=== PATIENT | male | born 2005 ===

== ENCOUNTER 2025-10-03 13:07 | Outpatient (AMB) | payer OTHER, SELFPAY ==
--- NOTE | 2025-10-03 13:10 | A.OFFPC_ITS ---
Vital Signs 10/03/25 13:17 Height 5 ft 3.75 in Weight 109 lb BMI 18.9 BP 124/69 Blood Pressure Location Rt brachial Position Sitting Respiration 20 Pulse 83 Pulse Source Monitor Temp 98.1 F Temp Source Oral Pulse Oximetry (%) 97 Oxygen Delivery Method Room Air Intake Visit Reasons: TREE WORKER-Stomach issues Intake Note: Stomach issues, before starting an activity or when he is anxious has stomach pain on the right side of the stomach Milling Machine Operator Required: No Accompanied by: Self / Same As Patient Allergies No Known Allergies Allergy (Verified 10/03/25 13:14) Medication List - Last Reconciled 10/03/25 by Tung Cullen MD omeprazole 20 mg PO DAILY Tobacco use date assessed: 10/03/25 Dental Screening Dental Screen Date: 10/03/25 Did you have a dental visit in the last 12 months?: Yes Did you have a dental problem in the last 6 months where you did not have access to dental care?: No Was dental information given to patient?: Patient has dentist HPI HPI Comments History of Present Illness Details History of Present Illness The patient is a 20-year-old individual presenting for evaluation of stomach pain and anxiety. Epigastric Pain: The patient reports experiencing stomach pain daily for the last couple of months, occurring in the mornings or mid-afternoon. The patient believes the pain is associated with anxiety. The patient also reports sometimes experiencing painful bowel movements and acknowledges a diet high in junk food, which may contribute to constipation. Anxiety: The patient reports experiencing high anxiety a couple of times a week, which started a couple of months ago. History of Palpitations: The patient has a history of palpitations and was previously prescribed metoprolol, which the patient has not taken for approximately seven to eight months. The patient was evaluated by a development coach for this condition in the past. Cannabis Use: The patient reports smoking one or two blunts or joints daily and has been doing so for the past two to three years. The patient denies any other illicit drug use. Surgical History: - No history of surgeries. Medications: - Metoprolol: Previously taken for palpi tations, but discontinued 7-8 months ago. 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 - Substance Use: The patient smokes one or two cannabis blunts or joints daily and has done so for two to three years. - The patient denies use of other drugs. - Diet: The patient reports consuming a lot of junk food and is trying to reduce intake. - Exercise: The patient goes to the gym and plays ball with friends for recreation. - Residence: The patient has lived in [facility] their entire life. Family History: - The patient denies any known family me dical history. Past Medical History - History of palpitations, for which the patient was evaluated by a development coach. - Previously treated with metoprolol but discontinued use 7-8 months ago. Health Maintenance - A baseline health screening was magdalena flores. - Laboratory tests ordered include: a co mplete blood count, comprehensive metabolic panel, hemoglobin A1c, lipid panel, thyroid panel, B12, folate, vitamin D, HIV, hepatitis B, and hepatitis C. - The patient declined screening for chl amydia, gonorrhea, and syphilis. - Dietary counseling was provided, recom mending a high-fiber and high-greens diet to address painful bowel movements and constipation. [facility] Medical History (Updated 10/03/25 @ 14:33 by Tung Cullen MD) Cannabis use disorder Palpitations Family History (Updated 10/03/25 @ 13:16 by Rodrigo Cooper CMA) Paternal Uncle Diabetes Social History (Updated 10/03/25 @ 13:16 by Rodrigo Cooper CMA) Housing: House Alcohol intake: never Patient Tobacco Use Status: Never used Tobacco e-Cigarette/Vaping Use: Never Used Substance Use Type: Marijuana service: No Current occupational status: employed Current occupation: [employer] Cognitive needs: No Hearing needs: No Vision needs: No Questionnaire PHQ-9 Over the last 2 weeks, how often have you been bothered by any of the following problems? 1. Little interest or pleasure in doing things: more than half the days 2. Feeling down, depressed, or hopeless: not at all 3. Trouble falling or staying asleep, or sleeping too much: not at all 4. Feeling tired or having little energy: several days 5. Poor appetite or overeating: not at all 6. Feeling bad about yourself - or that you are a failure or have let yourself or your family down: not at all 7. Trouble concentrating on things, such as reading the newspaper or watching television: not at all 8. Moving or speaking so slowly that other people could have noticed. Or the opposite - being so fidgety or restless that you have been moving around a lot more than usual: not at all 9. Thoughts that you would be better off or of hurting yourself in some way: not at all Total score: 3 Depression Screening Interpretation: Negative Depression Screening Done: Yes 83655 - PHQ-9 Billing: Yes Source: Developed by Drs. Hilario Goodwin, Tayla Ramirez, Timothy Che and colleagues, with an educational verenice from [employer]. Thrive Questionnaire Date Thrive assessed: 10/03/25 I am a: Patient What is your living situation today?: I have a steady place to live Within the past 12 months, did the food you bought not last and you didn't have the money to get more?: Never true Within the past 12 months, did you worry whether your food would run out before you got money to buy more?: Never true Do you have trouble paying for medicines?: No Do you have trouble getting transportation to medical appointments?: No Do you have trouble paying your heating and electricity bill?: No Do you have trouble taking care of your child, family member or friend?: No Are you currently unemployed and looking for a job?: No Are you interested in more education?: Yes Please select the resources that you would like help with: None Currently or been in a relationship where the following occur: No concerns reported THRIVE Score: 0 AUDIT C Alcohol Use Questionnaire (AUDIT-C) 1. How often do you have a drink containing alcohol?: Never Total Score: 0 GUERLINE-7 AMB Questionnaire GUERLINE-7 Date GUERLINE - 7 assessed: 10/03/25 Feeling nervous, anxious, or on edge: 1 = Several days Not being able to stop or control worryin = Not at all Worrying too much about different things: 1 = Several days Trouble relaxin = Not at all Being so restless that it is hard to sit still: 0 = Not at all Becoming easily annoyed or irritable: 0 = Not at all Feeling afraid as if something awful might happen: 0 = Not at all Total GUERLINE-7 score (0-4 normal; 5-9 mild; 10-14 moderate; 15-21 severe): 2 Source: Developed by Drs. Hilario Goodwin, Tayla Ramirez, Timothy Che and colleagues, with an educational verenice from [employer]. GUERLINE-7 Assessment Billing GUERLINE-7 Assessment Tool: GUERLINE-7 Assessment 37314 Review of Systems Narrative Review of Systems - Constitutional: Reports sleeping okay. - Cardiovascular: Reports a history of palpitations that are less severe than before. - Gastrointestinal: Reports daily stomach pain in the mornings or mid-afternoon. - Also reports that bowel movements are sometimes painful. - Psychiatric: Reports experiencing high anxiety a couple of times per week. - All other systems reviewed and are negative. 10-point ROS reviewed and negative except as noted in HPI Physical exam (Primary Care) Vital Signs: Last Vital Signs Temp 98.1 F 10/03/25 13:17 Pulse 83 10/03/25 13:17 Resp 20 10/03/25 13:17 BP 124/69 10/03/25 13:17 Pulse Ox 97 10/03/25 13:17 Oxygen Delivery Method Room Air 10/03/25 13:17 BMI result Body Mass Index 18.9 Tobacco/Smoking Status: Tobacco use Status Tobacco use date assessed 10/03/25 10/03/25 13:19 Patient Tobacco Use Status Never used Tobacco 10/03/25 13:19 e-Cigarette/Vaping Use Never Used 10/03/25 13:19 PHQ-9: PHQ-9 Score PHQ-9: Total score 3 10/03/25 13:13 Depression Screening Interpretation: Negative Thrive Assessment: Date of Thrive Assessment Date Thrive assessed 10/03/25 10/03/25 13:13 Currently or been in a relationship where the following occur: No concerns reported Narrative Physical Exam General: Well-appearing, in no acute distress. Vital signs: Within normal limits. HEENT: Normocephalic, atraumatic. PERRLA, EOMI. Conjunctiva clear, sclera anicteric. Oropharynx clear, mucous membranes moist. TMs intact bilaterally. Neck: Supple, no lymphadenopathy, no thyromegaly, no JVD or carotid bruits. Cardiovascular: RRR, normal S1/S2, no murmurs, rubs, or gallops. Peripheral pulses 2+ and symmetric. No edema. Respiratory: Lungs clear to auscultation bilaterally, no wheezes, rales, or rhonchi. Normal effort. Abdomen: Soft, non-tender, non-distended. Normoactive bowel sounds. No hepatosplenomegaly, no masses. MSK: Full range of motion, no joint swelling or deformity. Normal gait. Skin: Warm, dry, intact. No rashes, lesions, or pallor. Neuro: Alert and oriented x3. Cranial nerves II-XII intact. Strength 5/5 throughout. Sensation intact. Reflexes 2+ symmetric. Normal coordination and gait. Psych: Appropriate mood and affect. Normal judgment and insight. Reports high anxiety a couple of times a week. Coding Level of Care Code New Pt Level 4 (59297) Diagnoses Palpitations R00.2 Cannabis use disorder F12.90 Epigastric pain R10.13 Adjustment disorder with anxiety F43.22 Additional Codes GUERLINE-7 Assessment Billing - GUERLINE-7 Assessment Tool: GUERLINE-7 Assessment 18869 ([id number]) PHQ-9 - 57872 - PHQ-9 Billing: Yes ([id number]) Assessment & Plan Assessment & Plan (1) Palpitations: Code(s): R00.2 - Palpitations Category: Medical (2) Cannabis use disorder: Code(s): F12.90 - Cannabis use, unspecified, uncomplicated Category: Medical (3) Epigastric pain: Code(s): R10.13 - Epigastric pain (4) Adjustment disorder with anxiety: Code(s): F43.22 - Adjustment disorder with anxiety Plan Consent The patient provided verbal consent for baseline laboratory studies, including a complete blood count, comprehensive metabolic panel, hemoglobin A1c, lipid panel, thyroid studies, vitamin B12, folate, vitamin D, HIV, hepatitis B, and hepatitis C. The patient declined testing for chlamydia, gonorrhea, and syphilis, stating that the patient is not sexually active. Patient was informed and verbally consented to the use of an ambient scribe for clinic note documentation during this visit. Plan 1. Epigastric Pain And Constipation - An empiric trial of an acid agile developer was initiated. - Prescribed omeprazole 20 mg to be taken once daily in the morning before food. - A 30-day supply was sent to the patient's pharmacy. - Counseled the patient to increase fiber and greens in diet to address constipation, likely caused by a diet high in junk food. 2. Anxiety And Health Maintenance - To establish a comprehensive health baseline, a panel of labs was ordered, including CBC, CMP, HbA1c, lipids, thyroid function, B12, folate, vitamin D, HI V, and hepatitis screening. - The patient will follow up in two weeks to review the laboratory results and reassess symptoms. - Further management will be determined based on the lab findings and response to the initial treatment. Discussion Notes I discussed with the patient the plan to obtain a comprehensive set of baseline labs to get a clear picture of overall health. The patient agreed to proceed with the recommended blood work but declined screening for sexually transmitted infections, stating that the patient is not currently sexually active. For the daily stomach pains, I explained that we would start an acid-reducing medication, omeprazole 20 mg daily for one month, to see if it helps. I also advised that the painful bowel movements may be related to a diet high in junk food, and that increasing fiber and greens could alleviate this. We scheduled a follow-up appointment in two weeks to review all the results and decide on the next steps. Patient Instructions - Go to the laboratory to have your blood drawn for the tests we discussed. - Take one capsule of omeprazole 20 mg each morning before you eat. - A one-month supply has been sent to the [facility]. - Try to eat more foods with fiber, like fruits and vegetables, and reduce your intake of junk food to help with painful bowel movements. - Please schedule a follow-up appointment in two weeks to go over your test results. Medical Decision Making The patient is a 20-year-old individual presenting with daily epigastric pain and anxiety. The primary goal is to establish a health baseline and investigate the etiology of the symptoms. The epigastric pain is suspected to be related to acid-peptic disease, possibly exacerbated by anxiety and diet, prompting an empiric trial of omeprazole 20 mg daily. A comprehensive lab panel was ordered to screen for underlying organic causes for the patient's symptoms and to establish a baseline health profile. The patient's history of palpitations is noted but reported as improved. Dietary counseling was provided for constipation, which is likely secondary to a low- fiber diet. Close follow-up in two weeks will be crucial to review lab results and the response to the proton pump inhibitor, which will guide further diagnostic and therapeutic steps. Total Time Statement 30 min Total time spent caring for the patient today includes pre-visit chart review, d ocumentation, review of laboratory and diagnostic imaging results, medication reconciliation, medically necessary evaluation, counseling on diagnoses, care coordination, ordering appropriate tests and medications, review of tests performed by other providers, reporting test results to the patient, and communication with other healthcare providers. Orders: Orders Complete Blood Count Auto Diff Today Z13.9 - Encounter for screening, unspecified Syphilis Screen Today Z13.9 - Encounter for screening, unspecified Comprehensive Met. Panel Today Z13.9 - Encounter for screening, unspecified Hepatitis C Antibody Today Z13.9 - Encounter for screening, unspecified TSH reflex Free T4 Today Z13.9 - Encounter for screening, unspecified HIV Ab/Ag Today Z13.9 - Encounter for screening, unspecified Vitamin B12 and Folate Today Z13.9 - Encounter for screening, unspecified Hepatitis B Surface Antibody Today Z13.9 - Encounter for screening, unspecified Hepatitis B Surface Antigen Today Z13.9 - Encounter for screening, unspecified CT NG by PCR Urine Today Z13.9 - Encounter for screening, unspecified UA CC w/rflx Micro + Cult Today Z13.9 - Encounter for screening, unspecified Lipid Panel Today Z13.9 - Encounter for screening, unspecified Hemoglobin A1c Today Z13.9 - Encounter for screening, unspecified Magnesium Today Z13.9 - Encounter for screening, unspecified Vitamin D 1,25 dihydroxy Today Z13.9 - Encounter for screening, unspecified Medications: New omeprazole 20 mg PO DAILY 30 caps 0RF
[2025-10-03 13:17] VITALS: BP 124/69; PULSE 83; RESP 20; TEMP 36.7; O2SAT 97; BMI 18.9
--- OUTSIDE RECORDS SUMMARY | 2025-10-03 17:44 | XMS_ITS | Encounter Summary ---
Author Organization [facility] Address [address] [place] [id number] Phone Care Team Providers Care Educational Institution Curator Name Role Phone Gabriel Barnes MD Primary Care Provider Arlin Lake MD Unavailable [email or web address] Encounter Details Date Type Department Care Team (Late st Contact Info) Description 01/28/2024 Procedure Pass [facility] Pedi Cardiology at [address] [address] Social History Tobacco Use Types Packs/Day Years Used Date Smoking Tobacco: Never Assessed Education Answer Date Recorded Are you interested in more education? Not on marcos e 06/06/2023 Are you concerned about learning? Not on file 06/06/2023 No 06/06/2023 No 06/06/2023 Digital Access Answer Date Recorded No 06/06/2023 No 06/06/2023 Reliable internet access at home? Not on file 06/06/2023 Device with a working camera? Not on file Sex and Gender Information Value Date Recorded Sex Assigned at Not on file Legal Sex Male 6:47 PM EDT Gender Identity Not on file Sexual Orientation Not on file documented as of this encounter Plan of Treatment Not on file documented as of this encounter Visit Diagnoses Not on filedocumented in this encounter Care Teams Educational Institution Curator Relationship Specialty Start Date End Date Gabriel Barnes MD PCP - General Internal Medicine 06/06/23 Arlin Lake MD [email or web address] Pediatric Cardiology 10/30/23 documented as of this encounter Additional Source Comments The information contained in this document represents components of the legal health record. It is not the complete legal health record.[facility]
--- OUTSIDE RECORDS SUMMARY | 2025-10-03 17:44 | XMS_ITS | Clinical Summary ---
Author Organization [facility] Address [address] [place] [id number] Phone Care Team Providers Care Fisher Eel Name Role Phone Gabriel Barnes MD Primary Care Provider Arlin Lake MD Unavailable [email or web address] Allergies No known active allergies Medications No known medications Active Problems Problem Noted Date Diagnosed Date PVC (premature ventricular contraction) 09/26/20 Overview (11/26/2023): 07/2022- seen by Dr. Robertson for frequent PVC noted on 04/2021 on atenolol 25mg daily with breakthrough palpitations. Normal echo, normal thyroid, and iron levels. He was switched to betaxolol no longer having breakthrough PVCs. F/u 6 months. BMI (body mass index), pedia tric, less than 5th percentile for age 0201/03/2022 Environmental allergies 03/14/2015 Overview (11/26/2023): 03/21/16 Tobacco Packer: testing POS for dust mites, trees, grass, weed and cats Social History Tobacco Use Types Packs/Day Years [...] on file Sexual Orientation Not on file Last Filed Vital Signs Vital Sign Reading Time Taken Comments Blood Pressure 122/73 01/28/2024 10:41 AM EDT Pulse 64 01/28/2024 10:41 AM EDT Temperature - - Respiratory Rate - - Oxygen Saturation 98% 01/28/2024 10:41 AM EDT Inhaled Oxygen Concentration - - Weight 46 kg (101 lb 6.4 oz) 01/28/2024 10:41 AM EDT Height 163 cm (5' 4.17 ) 01/28/2024 10:41 AM EDT Body Mass Index 17.31 01/28/2024 10:41 AM EDT Plan of Treatment Health Maintenance Due Date Last Done Comments MMR VACCINES (1 of 1 - Standard series) 2005 DEVELOPMENTAL/BEHAVIORAL SCREENING (PHQ, PSC, or SWYC) 2007 DEPRESSION SCREENING 2016 SMOKING Hx and SMOKELESS TOBACCO SCREENING 2017 HPV VACCINES (1 - Male 3-dose series) 2019 MENINGOCOCCAL VACCINES (B) (1 of 2 - Standard) 2020 ADOLESCENT UNIVERSAL LIPID SCREENING 2021 HEPATITIS C SCREENING 2022 HIV ONE-TIME SCREENING (18-65 YEARS) 2022 INFLUENZA VACCINE (#1) 2025 COVID-19 VACCINE (1 - season) 2025 COMBINED DTaP,Tdap,Td (7 - Td or Tdap) 01/03/2032 01/03/2022, 11/16/2008, 10/06/2006, Additional history exists VARICELLA VACCINES Completed 12/16/2011, 10/02/2005 HEPATITIS A VACCINES Aged Out No long er eligible based on patient's age to complete this topic HIB VACCINES Aged Out No longer eligi ble based on patient's age to complete this topic MENINGOCOCCAL VACCINES (ACWY) Aged Out No longer eligible based on patient's age to complete this topic PNEUMOCOCCAL VACCINES (0-49 years) Aged Out No longer eligible based on patient's age to complete this topic Medical Devices Not on file Care Teams Fisher Eel Relationship Specialty Start Date End Date Gabriel Barnes MD PCP - General Internal Medicine 06/06/23 Arlin Lake MD [email or web address] Pediatric Cardiology 10/30/23 Additional Source Comments The information contained in this document represents components of the legal health record. It is not the complete legal health record.[facility]
--- OUTSIDE RECORDS SUMMARY | 2025-10-03 17:44 | XMS_ITS ---
Author Name [facility] Organization Unknown Care Team Organization Name Specialty Phone Email Start Date End Da te [facility] Primary Care 09/09/202306/10 [facility] Primary Care 07/17/202306/10 [facility] Primary Care 11/18/20222023 [facility] Primary Care 09/17/20222023
--- OUTSIDE RECORDS SUMMARY | 2025-10-03 17:44 | XMS_ITS | Encounter Summary ---
Author Organization [facility] Address [address] [facility] [address] [place] [id number] Phone Care Team Providers Care Advertising Solicitor Name Role Phone Gabriel Barnes MD Primary Care Provider Arlin Lake MD Unavailable [email or web address] Encounter Details Date Type Department Care Team (Late st Contact Info) Description 08/21/2023 Procedure Pass [facility] Pedi Cardiology at [address] [address] Social History Tobacco Use Types Packs/Day Years [...] on filedocumented in this encounter Care Teams Advertising Solicitor Relationship Specialty Start Date End Date Gabriel Barnes MD PCP - General Internal Medicine 06/06/23 Arlin Lake MD [email or web address] Pediatric Cardiology 10/30/23 documented as of this encounter Additional Source Comments The information contained in this document represents components of the legal health record. It is not the complete legal health record.[facility]
== END 2025-10-03 13:59 | disposition home or self-care (01) ==
PROVIDERS: PCP Student in an Organized Health Care Education/Training Program; Visit Provider Student in an Organized Health Care Education/Training Program
DX: R00.2 Palpitations (principal); F12.90 Cannabis use, unspecified, uncomplicated; R10.13 Epigastric pain; F43.22 Adjustment disorder with anxiety

== ENCOUNTER 2025-10-03 13:07 | Outpatient (REF) | payer OTHER, SELFPAY ==
[2025-10-03 18:19] LABS: MANUAL DIFF FLAG NO
[2025-10-03 18:38] LABS: Hematocrit 46.5 % (42.0-52.0); Hemoglobin 15.1 g/dl (14.0-18.0); Imm Gran Abs Auto 0.02 X10*3/uL (0.00-0.03); Imm Gran Pct Auto 0.2 % (0.0-0.4); Lymphocytes Absolute Auto 1.6 X10*3/uL (1.2-4.9); Mean Corpuscular HGB Conc 32.5 g/dl (31.0-36.0); Mean Corpuscular Hemoglobin 28.4 pg (27.0-33.0); Mean Corpuscular Volume 87.6 fL (80.0-98.0); NRBC Abs Auto 0.000 X10*3/uL (0.0-0.012); NRBC Pct Auto 0.0 /100WBC (0.0-0.2); Platelet Count 363 X10*3/uL (160-400); Red Blood Count 5.31 X10*6/uL (4.60-5.80); White Blood Count 9.1 X10*3/uL (4.8-10.8)
[2025-10-03 18:47] LABS: Appearance Urine Clear; Glucose Urine UA Negative (Negative); PH 6.0 (5.0-9.0); Specific Gravity - Urine 1.020 (1.005-1.025)
[2025-10-03 19:08] LABS: Alanine Aminotransferase 24 U/L (0-40); Albumin Level 5.2 g/dL (3.5-5.0); Alkaline Phosphatase 80 U/L (39-117); Anion Gap 14 (12-20); Aspartate Amino Transferase 29 U/L (5-37); Blood Urea Nitrogen 14 mg/dL (9-16); Calcium 9.6 mg/dL (8.4-10.2); Carbon Dioxide 27 mmol/L (22-29); Chloride 106 mmol/L (96-108); Cholesterol 155 mg/dL (<200); Estimated Glomerular Filt Rate > 60; HDL Cholesterol 51 mg/dL (>40); Potassium 3.7 mmol/L (3.3-5.1); Sodium 143 mmol/L (135-145); Total Protein 7.6 g/dL (6.5-8.0); Triglycerides 56 mg/dL (<150)
[2025-10-03 19:18] LABS: Magnesium 2.0 mg/dL (1.6-2.6)
[2025-10-03 19:27] LABS: Folate 7.7 ng/mL (> or = 4.0); Vitamin B12 209 pg/mL (200-900)
[2025-10-03 23:42] LABS: CT PCR Urine NOT DETECTED (Not Detect.); NG PCR Urine NOT DETECTED (Not Detect.)
[2025-10-04 04:38] LABS: Syphilis Screen Nonreactive (Nonreactive)
[2025-10-04 05:12] LABS: HBS Num1 0.00 mIU/mL (0-7.99); HBsAGNum1 0.44 S/CO (0.00-0.99); HIV Num 1 0.07 S/CO (0.00-0.99); Hepatitis B Surface Antigen Negative (Negative); ~HepC Num1 0.09 S/CO (0.00-0.79); ~Hepatitis B Surface Antibody NONREACTIVE (Nonreactive); ~Hepatitis C Antibody Nonreactive (Nonreactive)
[2025-10-07 15:18] LABS: VITAMIN D (1,25 OH) D3 31 pg/mL; Vit D (1,25-Dihydroxy) Total 31 pg/mL (18-72); Vitamin D (1,25 OH) D2 <8 pg/mL
== END 2025-10-03 13:08 | disposition home or self-care (01) ==
LOC: HO.HKASLDS 13:07
PROVIDERS: PCP Student in an Organized Health Care Education/Training Program; Visit Provider Student in an Organized Health Care Education/Training Program
DX: Z13.9 Encounter for screening, unspecified (principal); R00.2 Palpitations; R10.13 Epigastric pain; F43.22 Adjustment disorder with anxiety; F12.90 Cannabis use, unspecified, uncomplicated; Z79.899 Other long term (current) drug therapy
CPT/HCPCS: 80053; 80061; 81003; 82607; 82652; 82746; 83036; 83735; 84443; 85025; 86706; 86780; 86803; 87340; 87389; 87491; 87591

== ENCOUNTER 2025-10-19 14:51 | Outpatient (AMB) | payer OTHER, SELFPAY ==
--- NOTE | 2025-10-19 15:16 | MHC.PC.OV ---
Vital Signs 10/19/25 15:20 Height 5 ft 3.75 in Weight 108 lb 6 oz BMI 18.7 BP 131/64 Blood Pressure Location Rt brachial Position Sitting Respiration 18 Pulse 73 Pulse Source Pulse Oximeter Temp 98.2 F Temp Source Oral Pulse Oximetry (%) 98 Oxygen Delivery Method Room Air Intake Visit Reasons: 2 week follow up Intake Note: Patient present for 2 week follow up. Caseworker Intake Required: No Accompanied by: Self / Same As Patient Allergies No Known Allergies Allergy (Verified 10/19/25 15:19) Medication List - Last Reconciled 10/22/25 by Tung Cullen MD mecobalamin (vitamin B12) 1,000 mcg sublingual BEDTIME omeprazole 20 mg PO DAILY Tobacco use date assessed: 10/03/25 Dental Screening Dental Screen Date: 10/03/25 HPI HPI Comments History of Present Illness Details History of Present Illness The patient is a 20 year old male presenting for a review of laboratory results. Vitamin B12 deficiency: The patient's recent lab work revealed a vitamin B12 level of 209, which is at the low end of the normal range of 200-900. The patient may experience fatigue due to the low B12 level. Diagnostic Results: - Complete Blood Count (CBC): White blood cells, red blood cells, hemoglobin, and hematocrit are within normal limits. - Comprehensive Metabolic Panel (CMP): Electrolytes (potassium, sodium), renal function, random glucose, calcium, magnesium, and liver function are within normal limits. - Hemoglobin A1c: Normal. - Lipid Panel: Triglycerides, total cholesterol, LDL, and HDL are within normal limits. - Vitamin B12: 209 (Normal range 200-900). - Vitamin D: Within normal limits. - Folate: Within normal limits. - Thyroid function tests: Within normal limits. - Urinalysis: Within normal limits. - Hepatitis B: Negative. - Hepatitis C: Negative. - HIV: Negative. - Syphilis: Negative. - Chlamydia: Negative. Past Medical History Health Maintenance - Laboratory results review was conducted, showing a low-normal vitamin B12 level. - Screening for sexually transmitted infections, including Hepatitis B, Hepatitis C, HIV, syphilis, and chlamydia, was negative. - A follow-up visit is recommended in three to six months to repeat lab levels, specifically for vitamin B12. [facility] Medical History (Updated 10/22/25 @ 08:28 by Tung Cullen MD) Low vitamin B12 level Cannabis use disorder Palpitations Family History Paternal Uncle Diabetes Social History (Updated 10/03/25 @ 13:16 by Rodrigo Cooper CMA) Housing: House Alcohol intake: never Patient Tobacco Use Status: Never used Tobacco e-Cigarette/Vaping Use: Never Used Substance Use Type: Marijuana service: No Current occupational status: employed Current occupation: [employer] Cognitive needs: No Hearing needs: No Vision needs: No Questionnaire PHQ-9 Over the last 2 weeks, how often have you been bothered by any of the following problems? 1. Little interest or pleasure in doing things: more than half the days 2. Feeling down, depressed, or hopeless: not at all 3. Trouble falling or staying asleep, or sleeping too much: not at all 4. Feeling tired or having little energy: several days 5. Poor appetite or overeating: not at all 6. Feeling bad about yourself - or that you are a failure or have let yourself or your family down: not at all 7. Trouble concentrating on things, such as reading the newspaper or watching television: not at all 8. Moving or speaking so slowly that other people could have noticed. Or the opposite - being so fidgety or restless that you have been moving around a lot more than usual: not at all 9. Thoughts that you would be better off or of hurting yourself in some way: not at all Total score: 3 Depression Screening Interpretation: Negative Depression Screening Done: Yes 87442 - PHQ-9 Billing: Yes Source: Developed by Drs. Hilario Goodwin, Tayla Ramirez, Timothy Che and colleagues, with an educational verenice from [employer]. Thrive Questionnaire Date Thrive assessed: 10/03/25 I am a: Patient What is your living situation today?: I have a steady place to live Within the past 12 months, did the food you bought not last and you didn't have the money to get more?: Never true Within the past 12 months, did you worry whether your food would run out before you got money to buy more?: Never true Do you have trouble paying for medicines?: No Do you have trouble getting transportation to medical appointments?: No Do you have trouble paying your heating and electricity bill?: No Do you have trouble taking care of your child, family member or friend?: No Are you currently unemployed and looking for a job?: No Are you interested in more education?: Yes Please select the resources that you would like help with: None Currently or been in a relationship where the following occur: No concerns reported THRIVE Score: 0 AUDIT C Alcohol Use Questionnaire (AUDIT-C) 1. How often do you have a drink containing alcohol?: Never Total Score: 0 GUERLINE-7 AMB Questionnaire GUERLINE-7 Date GUERLINE - 7 assessed: 10/03/25 Feeling nervous, anxious, or on edge: 1 = Several days Not being able to stop or control worryin = Not at all Worrying too much about different things: 1 = Several days Trouble relaxin = Not at all Being so restless that it is hard to sit still: 0 = Not at all Becoming easily annoyed or irritable: 0 = Not at all Feeling afraid as if something awful might happen: 0 = Not at all Total GUERLINE-7 score (0-4 normal; 5-9 mild; 10-14 moderate; 15-21 severe): 2 Source: Developed by Drs. Hilario Goodwin, Tayla Ramirez, Timothy Che and colleagues, with an educational verenice from [employer]. GUERLINE-7 Assessment Billing GUERLINE-7 Assessment Tool: GUERLINE-7 Assessment 56445 Review of Systems Narrative Review of Systems - General: Patient may feel tired. 10-point ROS reviewed and negative except as noted in HPI Physical exam (Primary Care) Vital Signs: Last Vital Signs Temp 98.2 F 10/19/25 15:20 Pulse 73 10/19/25 15:20 Resp 18 10/19/25 15:20 BP 131/64 10/19/25 15:20 Pulse Ox 98 10/19/25 15:20 Oxygen Delivery Method Room Air 10/19/25 15:20 BMI result Body Mass Index 18.7 Tobacco/Smoking Status: Tobacco use Status Tobacco use date assessed 10/03/25 10/19/25 15:22 Patient Tobacco Use Status Never used Tobacco 10/19/25 15:22 e-Cigarette/Vaping Use Never Used 10/19/25 15:22 PHQ-9: PHQ-9 Score PHQ-9: Total score 3 10/19/25 15:22 Depression Screening Interpretation: Negative Thrive Assessment: Date of Thrive Assessment Date Thrive assessed 10/03/25 10/19/25 15:22 Currently or been in a relationship where the following occur: No concerns reported Narrative Physical Exam General: Well-appearing, in no acute distress. Vital signs: Within normal limits. HEENT: Normocephalic, atraumatic. PERRLA, EOMI. Conjunctiva clear, sclera anicteric. Oropharynx clear, mucous membranes moist. TMs intact bilaterally. Neck: Supple, no lymphadenopathy, no thyromegaly, no JVD or carotid bruits. Cardiovascular: RRR, normal S1/S2, no murmurs, rubs, or gallops. Peripheral pulses 2+ and symmetric. No edema. Respiratory: Lungs clear to auscultation bilaterally, no wheezes, rales, or rhonchi. Normal effort. Abdomen: Soft, non-tender, non-distended. Normoactive bowel sounds. No hepatosplenomegaly, no masses. MSK: Full range of motion, no joint swelling or deformity. Normal gait. Skin: Warm, dry, intact. No rashes, lesions, or pallor. Neuro: Alert and oriented x3. Cranial nerves II-XII intact. Strength 5/5 throughout. Sensation intact. Reflexes 2+ symmetric. Normal coordination and gait. Psych: Appropriate mood and affect. Normal judgment and insight. Coding Level of Care Code Est Pt Level 3 (30848) Add On Problem Visit Only Diagnoses Low vitamin B12 level R79.89 Cannabis use disorder F12.90 Additional Codes GUERLINE-7 Assessment Billing - GUERLINE-7 Assessment Tool: GUERLINE-7 Assessment 07781 ([id number]) PHQ-9 - 30366 - PHQ-9 Billing: Yes ([id number]) Assessment & Plan Assessment & Plan (1) Low vitamin B12 level: Code(s): R79.89 - Other specified abnormal findings of blood chemistry Category: Medical (2) Cannabis use disorder: Code(s): F12.90 - Cannabis use, unspecified, uncomplicated Category: Medical Plan Consent Patient was informed and verbally consented to the use of an ambient scribe for clinic note documentation during this visit. Plan 1. Vitamin B12 Deficiency - Recent labs show a vitamin B12 level of 209. - This level is on the low end of the normal range and can cause fatigue. - A prescription for a 3-month (90-day) supply of vitamin B12 supplements was sent to the pharmacy. - The patient is instructed to take one supplement every night. - Follow up in 3 to 6 months to repeat B12 levels. Discussion Notes I reviewed the patient's laboratory results with him. I informed him that all his results, including his CBC, metabolic panel, lipids, and STI screenings, were normal, with the exception of his vitamin B12 level. His B12 level was 209, which is at the low end of the normal range. I explained that low B12 can cause feelings of fatigue and that he would likely feel more energized with supplementation. I prescribed a 90-day supply of B12 supplements to be taken daily. I recommended he return in three to six months for repeat lab work to ensure his B12 level improves. The patient understood the plan and had no further questions. Patient Instructions - Your lab results were reviewed and are mostly normal. - Your vitamin B12 level is on the low side, which can make you feel tired. - A prescription for vitamin B12 supplements has been sent to your pharmacy. Please pick it up. - Take one vitamin B12 pill every night. - Please schedule a follow-up appointment in about three to six months to recheck your vitamin B12 level. Medical Decision Making The patient is a 20-year-old male presenting for a review of his recent lab results. The lab studies were largely unremarkable, with normal CBC, CMP, HbA1c, lipids, thyroid function, and negative infectious disease screening including HIV, hepatitis, and other STIs. The only notable finding was a vitamin B12 level of 209, which is borderline low. Given that low B12 can lead to symptoms such as fatigue, oral supplementation is warranted to improve the patient's level and overall energy. A 90-day supply of B12 has been prescribed. A follow-up in three to six months is recommended to re-evaluate his B12 level and ensure an adequate response to supplementation. Total Time Statement 20 min Total time spent caring for the patient today includes pre-visit chart review, documentation, review of laboratory and diagnostic imaging results, medication reconciliation, medically necessary evaluation, counseling on diagnoses, care coordination, ordering appropriate tests and medications, review of tests performed by other providers, reporting test results to the patient, and communication with other healthcare providers. Medications: New mecobalamin (vitamin B12) place tablet under tongue and allow to dissolve for at least30 secs before swallowing 1,000 mcg sublingual BEDTIME 90 tabs 0RF
[2025-10-19 15:20] VITALS: BP 131/64; PULSE 73; RESP 18; TEMP 36.8; O2SAT 98; BMI 18.7
--- OUTSIDE RECORDS SUMMARY | 2025-10-19 23:24 | XMS_ITS | Encounter Summary ---
Author Organization [facility] Address [address] [place] [id number] Phone Care Team Providers Care Manager Investment Name Role Phone Gabriel Barnes MD Primary Care Provider Arlin Lake MD Unavailable [email or web address] Encounter Details Date Type Department Care Team (Late st Contact Info) Description 08/21/2023 Procedure Pass [facility] Pedi Cardiology at [address] [address] Social History Tobacco Use Types Packs/Day Years [...] on filedocumented in this encounter Care Teams Manager Investment Relationship Specialty Start Date End Date Gabriel Barnes MD PCP - General Internal Medicine 06/06/23 rAlin Lake MD [email or web address] Pediatric Cardiology 10/30/23 documented as of this encounter Additional Source Comments The information contained in this document represents components of the legal health record. It is not the complete legal health record.[facility]
--- OUTSIDE RECORDS SUMMARY | 2025-10-19 23:24 | XMS_ITS | Clinical Summary ---
Author Organization [facility] Address [address] [place] [id number] Phone Care Team Providers Care Control Director Name Role Phone Gabriel Barnes MD Primary Care Provider Arlin Lake MD Unavailable [email or web address] Allergies No known active allergies [...] 0201/03/2022 Environmental allergies 03/14/2015 Overview (11/26/2023): 03/21/16 Principal Architect: testing POS for dust mites, trees, grass, [...] (1 of 1 - Standard series) 2005 DEPRESSION SCREENING 2016 SMOKING Hx and SMOKELESS TOBACCO SCREENING 2017 HPV VACCINES (1 - Male 3-dose series) 2019 MENINGOCOCCAL VACCINES (B) (1 of 2 - Standard) 2020 ADOLESCENT UNIVERSAL LIPID SCREENING 2021 HEPATITIS C SCREENING 2022 HIV ONE-TIME SCREENING (18-65 YEARS) 2022 INFLUENZA VACCINE (#1) 2025 COVID-19 VACCINE (1 - season) 2025 Adult Td,Tdap Booster 01/03/2032 01/03/2022 COMBINED DTaP,Tdap,Td (7 - Td or Tdap) 01/03/2032 01/03/2022, 11/16/2008, 10/06/2006, Additional history exists HEPATITIS A VACCINES Aged Out No long [...] Medical Devices Not on file Care Teams Control Director Relationship Specialty Start Date End Date Gabriel Barnes MD PCP - General Internal Medicine 06/06/23 Arlin Lake MD [email or web address] Pediatric Cardiology 10/30/23 Additional Source Comments The information contained in this document represents components of the legal health record. It is not the complete legal health record.[facility]
--- OUTSIDE RECORDS SUMMARY | 2025-10-19 23:24 | XMS_ITS | Encounter Summary ---
Author Organization [facility] Address [address] [place] [id number] Phone Care Team Providers Care Machine Operator Transplanter Name Role Phone Gabriel Barnes MD Primary Care Provider Arlin Lake MD Unavailable [email or web address] Encounter Details Date Type Department Care Team (Late st Contact Info) Description 01/28/2024 Procedure Pass [facility] Pedi Cardiology at [address] [address] Social History Tobacco Use Types Packs/Day Years [...] on filedocumented in this encounter Care Teams Machine Operator Transplanter Relationship Specialty Start Date End Date Gabriel Barnes MD PCP - General Internal Medicine 06/06/23 Arlin Lake MD [email or web address] Pediatric Cardiology 10/30/23 documented as of this encounter Additional Source Comments The information contained in this document represents components of the legal health record. It is not the complete legal health record.[facility]
== END 2025-10-19 15:33 | disposition home or self-care (01) ==
LOC: HO.HMCFMS 14:52
PROVIDERS: PCP Student in an Organized Health Care Education/Training Program; Visit Provider Student in an Organized Health Care Education/Training Program
DX: R79.89 Other specified abnormal findings of blood chemistry (principal); F12.90 Cannabis use, unspecified, uncomplicated

== ENCOUNTER → 2025-10-19 14:51 | Outpatient (BNVA) | payer OTHER, SELFPAY | PROVIDERS: PCP Student in an Organized Health Care Education/Training Program; Visit Provider Student in an Organized Health Care Education/Training Program | DX: R79.89 Other specified abnormal findings of blood chemistry (principal); F12.90 Cannabis use, unspecified, uncomplicated | CPT/HCPCS: 96127; 99212 ==